=== PATIENT | female | born 1980 | race American Indian/Alaskan Native ===

== ENCOUNTER 2020-08-29 12:35 | Emergency (ER) | payer OTHER ==
[2020-08-29] MEDS ORDERED: SODIUM CHLORIDE 0.9% 1000 ML 1,000 ML IV ONE (14:14)
--- NOTE | 2020-08-29 14:18 | Event Note ---
ED Screening Note Date of service: 08/29/20 Time: 14:16 ED Screening Note: 39-year-old female with a past medical history of sarcoidosis presents to the ER today complaining of syncope and head injury. Onset Sunday night. Patient states that she was about to go to bed, when she started having symptoms of indigestion, she states that she walked over to her refrigerator to grab yulisa trevor when she started to feel dizzy and lightheaded and passed out. She states that she was by herself at the time of the incident. She reported bruising over her left eye after the fall which makes her think she may have struck her head on something but she is not sure. She states that the indigestion type symptoms has since resolved. She had no shortness of breath, slurred speech, vision changes or any focal weakness. She states that she still continues to have headache, and have dizziness, she states that there was one incident where her heart rate at rest got up to 150 on her apple watch. She denies any history of hypertension, diabetes or coronary artery disease or thyroid disease. She does admit to using a new CBD oil in her vape This initial assessment/diagnostic orders/clinical plan/treatment(s) is/are subject to change based on patients health status, clinical progression and re- assessment by fellow clinical providers in the ED. Further treatment and workup at subsequent clinical providers discretion. Patient/guardian urged not to elope from the ED as their condition may be serious if not clinically assessed and managed. Initial orders include: Syncope order set which includes CT head, EKG, troponin, CBC, CMP, hCG
[2020-08-29 14:42] LABS: Basophils # (Auto) 0.1 K/mm3 (0.0-0.1); Basophils % (Auto) 1.6 % (0.0-1.8); Eosinophils # (Auto) 0.1 K/mm3 (0.0-0.4); Eosinophils % (Auto) 2.5 % (0.0-4.3); Hematocrit 40.2 % (30.3-42.9); Hemoglobin 13.7 gm/dl (10.1-14.3); Lymphocytes # (Auto) 1.5 K/mm3 (1.2-5.4); Lymphocytes % (Auto) 29.9 % (13.4-35.0); Mean Corpuscular HGB Conc 34 % (30-34); Mean Corpuscular Volume 90 fl (79-97); Monocytes # (Auto) 0.5 K/mm3 (0.0-0.8); Monocytes % (Auto) 9.5 % (0.0-7.3); Platelet Count 265 K/mm3 (140-440); Red Blood Count 4.45 M/mm3 (3.65-5.03); Red Cell Distribution Width 14.4 % (13.2-15.2)
[2020-08-29 15:20] LABS: Alanine Aminotransferase 48 units/L (7-56); Albumin 4.4 g/dL (3.9-5); Blood Urea Nitrogen 11 mg/dL (7-17); Calcium 9.5 mg/dL (8.4-10.2); Hemolysis Index 2
[2020-08-29 15:25] LABS: BUN/Creatinine Ratio 16
--- NOTE | 2020-08-29 16:21 | Cat Scan Report ---
CT head/brain wo con INDICATION / CLINICAL INFORMATION: 39 years Female; MAIN. TECHNIQUE: Routine CT head without contrast. All CT scans at this location are performed using CT dos e reduction for ALARA by means of automated exposure control. COMPARISON: None. FINDINGS: BRAIN / INTRACRANIAL CONTENTS: The brain demonstrate appropriate attenuation. The ventricular system is within normal limits in size and configuration. There is no CT evidence of acute intracranial hemo rrhage or significant mass effect. ORBITS: No significant abnormality of visualized orbits. SINUSES / MASTOIDS: No significant abnormality in the visualized paranasal sinuses or mastoid air gabriela ls. CRANIOCERVICAL JUNCTION: No significant abnormality. ADDITIONAL FINDINGS: None. IMPRESSION: 1. There is no CT evidence of acute intracranial process. Signer Name: Lion Pulido MD Signed: 08/29/2020 4:17 PM Workstation Name: [id number]
--- NOTE | 2020-08-29 16:25 | XRay Report ---
XR chest routine 2V INDICATION / CLINICAL INFORMATION: Syncope. COMPARISON: None available. FINDINGS: SUPPORT DEVICES: None. HEART /PULMONARY VASCULATURE: No significant abnormality. LUNGS / PLEURA: No significant pulmonary or pleural abnormality. No pneumothorax. ADDITIONAL FINDINGS: No significant additional findings. IMPRESSION: 1. No acute findings. Signer Name: Ismael Pandya MD Signed: 08/29/2020 4:20 PM Workstation Name: [id number]
[2020-08-29 19:20] VITALS: BP 150/104
--- NOTE | 2020-08-29 19:42 | Emergency Department Report ---
ED Syncope HPI - General Chief Complaint: Syncope Stated Complaint: POSSIBLE CONCUSSION Time Seen by Provider: 08/29/20 17:48 Source: patient Exam Limitations: no limitations - History of Present Illness Initial Comments: Chief complaint: "I think it was the CBD vape." HPI this is a 39-year-old female with history of sarcoidosis and endometriosis who presents with syncopal episode which occurred on Sunday. She moved abruptly while standing in front of her refrigerator,. When the abrupt movement happened she felt as if she is going to pass out. She recalls waking up on the floor. Food item was laying next to her. She had swelling above her left eyebrow. She also has soreness of her posterior head. Due to bitemporal headache persistent since the syncopal episode and head injury she was concern for concussion. She normally vapes CBD oil twice a day. She used a new source for her cartridge. She denies preceding chest pain. She did have episode of palpitations the following Sunday. She was unable to go to work due to her symptoms. She missed work for the entire week. No family history of pulmonary embolism. No family history of cardiac disease. She works at [employer]. She has been exposed to COVID-19. She has had poor appetite. Timing/Prior Episodes: other (One episode on Sunday 6 days ago.) Precipitating Factors: Positive: none Context: other (Rapid movement) Loss of Consciousness: brief (seconds) Current Symptoms: headache - Related Data Allergies/Adverse Reactions: Allergies Latex, Natural Rubber Allergy (Verified 08/29/20 12:49) Hives Home Medications: Ambulatory Orders Promethazine [Phenergan] 25 mg PO Q6HR PRN #10 tab 08/29/20 ED Review of Systems ROS: Stated complaint: POSSIBLE CONCUSSION Other details as noted in HPI Comment: All other systems reviewed and negative Constitutional: denies: chills, fever, malaise Respiratory: denies: cough, shortness of breath Cardiovascular: palpitations. denies: chest pain Neurological: headache ED Past Medical Hx - Past Medical History Previous Medical History?: Yes Additional medical history: Endometriosis sarcoidosis - Surgical History Past Surgical History?: Yes Additional Surgical History: OVARY REMOVED - Social History Smoking Status: Former Smoker Substance Use Type: Other (Patient vapes CBD oil) - Medications Home Medications: Home Medications Medication Instructions Recorded Confirmed Last Taken Type Promethazine [Phenergan] 25 mg PO Q6HR PRN #10 tab 08/29/20 Unknown Rx ED Physical Exam - General Limitations: No Limitations General appearance: alert, in no apparent distress, other (Pleasant nontoxic no acute distress talkative) - Head Head exam: Present: atraumatic, normocephalic - Eye Eye exam: Present: normal appearance - ENT ENT exam: Present: mucous membranes moist - Neck Neck exam: Present: normal inspection - Respiratory Respiratory exam: Present: normal lung sounds bilaterally. Absent: respiratory distress, wheezes, rales, rhonchi - Cardiovascular Cardiovascular Exam: Present: regular rate, normal rhythm, normal heart sounds. Absent: systolic murmur, diastolic murmur, rubs, gallop - GI/Abdominal GI/Abdominal exam: Present: soft, normal bowel sounds. Absent: distended, tenderness, guarding, rebound - Extremities Exam Extremities exam: Present: normal inspection - Neurological Exam Neurological exam: Present: alert, oriented X3 - Psychiatric Psychiatric exam: Present: normal affect, normal mood - Skin Skin exam: Present: warm, dry, intact, normal color. Absent: rash ED Course Vital Signs 08/29/20 08/29/20 08/29/20 12:48 12:51 18:03 Temperature 94.9 F L Pulse Rate 90 Respiratory 18 18 Rate Blood Pressure 144/100 Blood Pressure [Left] O2 Sat by Pulse 100 100 Oximetry 08/29/20 19:19 Temperature 98.3 F Pulse Rate 68 Respiratory 18 Rate Blood Pressure Blood Pressure 150/104 [Left] O2 Sat by Pulse 99 Oximetry ED Medical Decision Making - Lab Data Result diagrams: 08/29/20 14:28 08/29/20 14:28 Laboratory Results - last 24 hr 08/29/20 08/29/20 08/29/20 14:28 14:28 14:28 WBC 5.0 RBC 4.45 Hgb 13.7 Hct 40.2 MCV 90 MCH 31 MCHC 34 RDW 14.4 Plt Count 265 Lymph % (Auto) 29.9 Hubbard % (Auto) 9.5 H Eos % (Auto) 2.5 Baso % (Auto) 1.6 Lymph # (Auto) 1.5 Hubbard # (Auto) 0.5 Eos # (Auto) 0.1 Baso # (Auto) 0.1 Seg Neutrophils % 56.5 Seg Neutrophils # 2.8 Sodium 138 Potassium 3.8 Chloride 100.8 Carbon Dioxide 27 Anion Gap 14 BUN 11 Creatinine 0.7 Estimated GFR > 60 BUN/Creatinine Ratio 16 Glucose 85 Calcium 9.5 Magnesium 1.90 Total Bilirubin 0.40 AST 44 H ALT 48 Alkaline Phosphatase 280 H Troponin T < 0.010 Total Protein 8.4 H Albumin 4.4 Albumin/Globulin Ratio 1.1 HCG, Qual Negative - EKG Data -: EKG Interpreted by Me EKG shows normal: sinus rhythm, axis, intervals, QRS complexes Rate: normal - EKG Data 08/29/20 19:38 EKG obtained 180 EKG interpreted by me Normal sinus rhythm rate 70 bpm normal axis normal intervals no ST elevation inverted T waves in anterior leads - Radiology Data Radiology results: report reviewed Radiology impressions: Chest radiograph no acute process, head CT no acute findings - Medical Decision Making 1. syncope: PERC negative. I suspect structural heart disease or arrhythmia. Suspect vasovagal syncope. Especially after vaping. 2. Closed head injury without intracranial hemorrhage or significant concussive syndrome 3. Tension headache prescribed promethazine Lab review notable for normal kidney function. Normal CBC. test negative. With history of COVID-19 exposure recommended testing. 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 Critical care attestation.: If time is entered above; I have spent that time in minutes in the direct care of this critically ill patient, excluding procedure time. ED Disposition Clinical Impression: Syncope, Closed head injury, Tension headache Disposition: -01 TO HOME OR SELFCARE Is pt being admited?: No Does the pt Need Aspirin: No Condition: Stable Instructions: Syncope (ED), Syncope, Head Injury, Adult Prescriptions: Promethazine [Phenergan] 25 mg PO Q6HR PRN #10 tab PRN Reason: Nausea Referrals: DOUG LINTON MD [Other] - 3-5 Days Forms: Work/School Release Form(ED)
[2020-08-29] MEDS ORDERED: ACETAMINOPHEN 500 MG TAB PO ONE (19:47)
[2020-08-29] MEDS ORDERED: ONDANSETRON 4 MG ODT TAB PO ONE (19:47)
== END 2020-08-29 20:31 | disposition home or self-care (01) ==
LOC: ED 12:35
DX: S09.90XA Unspecified injury of head, initial encounter (principal); R55 Syncope and collapse; G44.209 Tension-type headache, unspecified, not intractable; Z91.040 Latex allergy status; Z91.048 Other nonmedicinal substance allergy status; Z87.891 Personal history of nicotine dependence; Z98.890 Other specified postprocedural states; Z79.899 Other long term (current) drug therapy; X58.XXXA Exposure to other specified factors, initial encounter; Y93.89 Activity, other specified; Y92.89 Other specified places as the place of occurrence of the external cause; Y99.8 Other external cause status
CPT/HCPCS: 36415; 70450; 71046; 80053; 83735; 84484; 84703; 85025; 93005; Q0162